=== PATIENT | female | born 1990 | race Caucasian/White ===

== ENCOUNTER → 2018-06-11 14:39 | Outpatient (CLI) | payer OTHER | END | disposition home or self-care (01) | LOC: D.MRI 14:39 | PROVIDERS: ATTEND Orthopaedic Surgery | DX: M25.561 Pain in right knee (principal) ==

== ENCOUNTER → 2018-07-19 10:56 | Outpatient (CLI) | payer OTHER ==
[~2018-07-19 10:56] MED LIST: ADIPEX-P37.5 MG PO; BENADRYL50 MG PO; CLARITIN 10 MG10 MG PO; ETHINYL ESTRADIOL; ETONOGESTREL; FERROUS SULFAT325 MG PO; KEFLEX500 MG PO; MULTI-DAY VITAM1 TAB PO; SINGULAIR10 MG PO; ULTRAM50 MG PO; ZANTAC300 MG PO
== END | disposition home or self-care (01) ==
LOC: D.US 10:56
DX: I83.819 Varicose veins of unspecified lower extremity with pain (principal)

== ENCOUNTER 2018-09-06 05:34 | Day surgery (SDC) | payer OTHER ==
[~2018-09-06] VITALS: Ht 162.6 cm; Wt 109.3 kg
[~2018-09-06 05:34] MED LIST changes: -ADIPEX-P37.5 MG PO; -CLARITIN 10 MG10 MG PO; -KEFLEX500 MG PO
[2018-09-06 05:55] LABS: BASOPHILS 0.3 % (0-2); HEMATOCRIT 37.1 % (36.0-48.0); HEMOGLOBIN 12.4 g/dL (12-16); IMMATURE GRANULOCYTES 0.3 % (0-5); LYMPHOCYTES 33.3 % (15-50); MCH 30.5 pg (26.0-34.0); MCHC 33.4 g/dL (31.0-37.0); MCV 91.2 fL (80.0-100.0); MEAN PLATELET VOLUME 8.6 fL (7.4-10.4); MONOCYTES 5.6 % (2-11); NEUTROPHILS 59.5 % (40-80); PLATELET COUNT 320 10x3/uL (130-400); RBC 4.07 10x6/uL (4.00-5.40); RDW 13.3 % (11.5-14.5); WBC 6.9 10x3/uL (4.8-10.8)
[2018-09-06] MEDS ORDERED: CLARITIN 10 MG10 MG PO (06:23)
[2018-09-06 06:26] VITALS: BP 137/99; Ht 162.6 cm; Wt 109.3 kg
[2018-09-06 06:35] LABS: HCG URINE NEGATIVE (NEGATIVE)
--- NOTE | 2018-09-06 16:59 | NUR ---
[address] BRYAN VIA PHONE. WILL RE-INFORCE DRESSING AND HAVE PT ELEVATE LEGS FOR RIDE HOME. SPOKE WITH PT AND HER MOTHER WHO IN A RETIRED RN WITH INSTRUCTIONS. BOTH VERBALIZED AN UNDERSTANDING
--- NOTE | 2018-09-09 12:59 | OP ---
PATIENT NAME: ALEXANDRE SOUZA MEDICAL RECORD: [id number] :90 LOCATION:[facility] ADMISSION DATE: SURGEON: SHANTA BRYAN MD DATE OF OPERATION: 09/06/2018 PREOPERATIVE DIAGNOSES: 1. Pathologic venous reflux in the bilateral greater saphenous and lesser saphenous veins. 2. Multiple symptomatic lower extremity varicosities, bilateral. POSTOPERATIVE DIAGNOSES: 1. Pathologic venous reflux in the bilateral greater saphenous and lesser saphenous veins. 2. Multiple symptomatic lower extremity varicosities, bilateral. PROCEDURES: 1. VNUS radiofrequency ablation of the right greater saphenous vein. The length treated was 62 cm. 1. VNUS radiofrequency ablation of the left greater saphenous vein. The length treated was 58.5 cm. 1. VNUS radiofrequency ablation of the left lesser saphenous vein. The length treated was 17 cm. 2. VNUS radiofrequency ablation of the right lesser saphenous vein. The length treated was 16.0 cm 3. Bilateral lower extremity avulsion phlebectomies times 72. SURGEON: Shanta Bryan MD CHIEF COMMUNICATIONS OFFICER: Romulo Angel, Keeper Head. BLOOD LOSS: 400 cc. ANESTHESIA: General. COMPLICATIONS: None. The risks, possible complications and alternatives to the procedure were explained to the patient. She elects to proceed. Discussion specifically included, but was not limited to, bleeding requiring emergency reoperation, infection, possibility that all the varicosities would not be removed, possibility of nerve injury or paresthesias. OPERATIVE COURSE: The patient was conveyed the operating room electively on 09/06/2018. I saw the patient in the holding area and with her standing in the presence of a female nurse, I marked all the varicosities. The patient confirmed that all the varicosities were marked. There was one varicosity that was on the patient's right groin as well as the left lower quadrant of the abdomen. After being conveyed to the operating room, general anesthesia was induced by anesthesia staff. The patient was initially positioned supine. She was then positioned in the reverse Trendelenburg position. Under ultrasonographic guidance, I percutaneously accessed the right greater saphenous vein just above the ankle. A guidewire passed easily. A dilator sheath was advanced. The dilator and wire were removed. Through the sheath, the radiofrequency catheter OPERATIVE REPORT [id number] ALEXANDRE SOUZA was advanced. It was advanced to the saphenofemoral junction. I then withdrew it about 2 cm out of the saphenofemoral junction, so that its tip was within the greater saphenous vein. Under ultrasonographic guidance, I then injected a crystalloid solution around the vein to act as a heat sink in order to prevent thermal damage to surrounding structures. I activated the radiofrequency catheter. It was activated twice initially. With each 7 cm pullback, it was activated again. The entire length treated is listed above. I then injected a dilute foamed sclerosant up through the sheath. The sheath was then removed. The sheath entry site was closed with a single horizontal mattress 4-0 Vicryl Rapide suture. Attention was then turned to the left greater saphenous vein under ultrasonographic guidance, I percutaneously accessed the vein in an antegrade fashion. A guidewire passed easily. A dilator sheath was advanced. The dilator and wire were removed. Through the sheath, I advanced the radiofrequency catheter to the saphenofemoral junction. I then withdrew the tip of the catheter, so that it was about 2 cm within the greater saphenous vein. I then under ultrasonographic guidance, I injected a crystalloid solution into the perivenular tissues to act as a heat sink. I then activated the radiofrequency catheter. It was activated twice initially. With each 7 cm pullback, it was activated again. The entire length treated is listed above. I then injected a dilute foamed sclerosant up through the sheath. The sheath was then removed. The sheath puncture site was closed with a horizontal mattress 4-0 Vicryl Rapide suture. Through small skin nicks, avulsion phlebectomies were performed. At no time was there any apparent nerve injury during this procedure. The patient was then positioned prone. Under ultrasonographic guidance, I percutaneously accessed the left lesser saphenous vein in an antegrade fashion. Guidewire was passed easily. A small skin maicol was accomplished. The dilator sheath was advanced over the wire. The dilator and wire were removed. The radiofrequency catheter was then advanced. It was advanced to the saphenopopliteal junction. I then withdrew the catheter several centimeters into the lesser saphenous vein. Under ultrasonographic guidance, I injected a crystalloid solution into the perivenular tissues to act as a heat sink to prevent injury to surrounding structures. I activated the radiofrequency catheter. With each 7 cm pullback, the catheter was activated again. The catheter was then removed. The entire length treated is listed above. Through the sheath, I injected a dilute foamed sclerosant. The sheath was then removed. The sheath puncture site was closed with a horizontal mattress 4-0 Vicryl Rapide suture. Attention was then turned to the right lesser saphenous vein. Under ultrasonographic guidance, I percutaneously accessed the right lesser saphenous vein. A guidewire passed easily. A small skin maicol was accomplished. A dilator sheath was advanced over the wire. The dilator and wire were removed. Through the sheath, I advanced the radiofrequency catheter. Under ultrasonographic guidance, I pulled the radiofrequency catheter back so that it was 2 cm within the lesser saphenous vein, away from the saphenopopliteal OPERATIVE REPORT [id number] ALEXANDRE SOUZA [place]. I then injected a crystalloid into the perivenular tissues. I activated the radiofrequency catheter. With each activation, I pulled back 7 cm. The entire length treated is listed above. I radiofrequency catheter was then removed. I injected a dilute foamed sclerosant through the sheath. The sheath was then removed. The puncture site was closed with a horizontal mattress 4-0 Vicryl Rapide suture. Through the small skin nicks, avulsion phlebectomies were performed with the phlebectomy hook. At no time was there any apparent nerve injury during the procedure. The patient was then positioned supine. Both lower extremities were wrapped in Coban wraps. I will see the patient in my office on Sunday for removal of the dressings. TRANSINT:[id number] Voice Confirmation ID: [id number] DOCUMENT ID: [id number] SHANTA BRYAN MD at 1259 CC: SOUMYA SCHMIDT DO and LACY, BRITTANY [id number] DICTATION DATE: 09/06/18 1321 COMBUSTION ANALYST: 09/06/18 1616 [facility] 09/06/18 [id number] [place] [address]
== END 2018-09-06 16:50 | disposition home or self-care (01) ==
LOC: D.OPS 05:34 → D.PAN 08:00 → D.OPS 08:00
PROVIDERS: Anesthesiology; ATTEND Surgery
DX: I83.93 Asymptomatic varicose veins of bilateral lower extremities (principal)

== ENCOUNTER 2018-10-15 00:54 | Emergency (ER) | payer OTHER ==
[~2018-10-15] VITALS: Ht 162.6 cm; Wt 115.9 kg
[~2018-10-15 00:54] MED LIST changes: +CLARITIN 10 MG10 MG PO
[2018-10-15 00:59] VITALS: Ht 162.6 cm; Wt 115.9 kg
[2018-10-15] MEDS ORDERED: ADIPEX-P37.5 MG PO (01:03)
[2018-10-15] MEDS ORDERED: KEFLEX500 MG PO (01:03)
[2018-10-15] MEDS ORDERED: ULTRAM50 MG PO (01:40)
[2018-10-15 02:00] VITALS: BP 138/80
== END 2018-10-15 02:00 | disposition home or self-care (01) ==
LOC: D.ER 00:54
DX: R60.0 Localized edema (principal)

== ENCOUNTER → 2018-10-15 13:50 | Outpatient (CLI) | payer OTHER ==
[2018-10-15 00:59] VITALS: BMI 43.8
[~2018-10-15 13:50] MED LIST changes: +ADIPEX-P37.5 MG PO; +KEFLEX500 MG PO
== END | disposition home or self-care (01) ==
LOC: D.US 13:50
PROVIDERS: ATTEND Surgery
DX: R22.43 Localized swelling, mass and lump, lower limb, bilateral (principal)

== ENCOUNTER 2018-12-18 05:00 | Day surgery (SDC) | payer OTHER ==
[2018-12-17 09:56] LABS: HEMATOCRIT 38.4 % (36.0-48.0); HEMOGLOBIN 12.5 g/dL (12-16); MCH 29.1 pg (26.0-34.0); MCHC 32.6 g/dL (31.0-37.0); MCV 89.3 fL (80.0-100.0); MEAN PLATELET VOLUME 8.6 fL (7.4-10.4); RBC 4.3 10x6/uL (4.00-5.40); RDW 13.6 % (11.5-14.5); WBC 6.3 10x3/uL (4.8-10.8)
[~2018-12-18] VITALS: Ht 162.6 cm; Wt 117.9 kg
--- NOTE | ~2018-12-18 | OP ---
PATIENT NAME: ALEXANDRE SOUZA MEDICAL RECORD: [id number] :90 LOCATION:[facility] ADMISSION DATE: SURGEON: GRETCHEN MERAZ DPM DATE OF OPERATION: 12/18/2018 PREOPERATIVE DIAGNOSIS: Tailor's bunion deformity of bilateral fifth metatarsal. POSTOPERATIVE DIAGNOSIS: Tailor's bunion deformity of bilateral fifth metatarsal. PROCEDURE: Bilateral fifth metatarsal head partial resection. ANESTHESIA: General with local infiltrate utilizing lidocaine and Marcaine plain 10 cc around the fifth ray of the bilateral feet. HEMOSTASIS: Esmarch were used to bilateral ankles. PREOPERATIVE DETAILS: The patient was taken to the OR and placed on the operating table in a supine position. This was followed by induction of general anesthesia and infiltration of local anesthetic. It was at this time that Dr. Sarah performed his consented procedure on the right knee. Following that, the bilateral lower extremities were prepped and draped in the usual aseptic technique followed by exsanguination utilizing an Esmarch. PROCEDURE NUMBER 1: Partial metatarsal head resection, head of the fifth metatarsal. Following application of the Esmarch, a 15-blade was used to create a 3 cm linear incision over the lateral aspect of the head of the fifth metatarsal. The incision was deepened down through subcutaneous tissue being sure to avoid all vital structures. A capsulotomy was performed and the head of fifth metatarsal was delivered. The plantar aspect was visualized and resected with a sagittal saw. The lateral eminence was also resected with a sagittal saw. The rough areas were smoothed with a bone rasp. The wound was flushed. The capsule was repaired with 2-0 Vicryl, the subcutaneous tissue with 4-0 Rapide and the skin was closed with 4-0 Rapide in a subcuticular technique followed by Dermabond. Adaptic, 4 x 4 and Conform were applied to the wound followed by a Coban. The Esmarch was removed. PROCEDURE NUMBER 2: Partial metatarsal head resection of the right fifth metatarsal. The procedure as described in number 1 was performed without variation and no complication. POSTOPERATIVE DETAILS: The patient tolerated the procedure well and left the OR with vital signs stable and vascular status at preoperative levels. The patient was transported to recovery per anesthesia in stable condition. TRANSINT:[id number] Voice Confirmation ID: [id number] DOCUMENT ID: [id number] OPERATIVE REPORT [id number] ALEXANDRE SOUZA MCKAY DPM CC: [id number] DICTATION DATE: 12/18/18905 SHORT ORDER COOK: 12/18/18 1516 [facility] 12/18/18 [id number] [place] [address] [id number]
[2018-12-18 06:16] VITALS: BP 113/75; Ht 162.6 cm; Wt 117.9 kg
[2018-12-18 06:26] LABS: HCG URINE NEGATIVE (NEGATIVE)
[2018-12-18] MEDS ORDERED: PERCOCET 7.5/321 TAB PO (07:33)
--- NOTE | 2018-12-18 10:19 | NUR ---
0957-REC'D FROM . AWAKE AND ALERT WITHOUT COMPLAINTS OF PAIN. DRESSINGS TO RIGHT KNEE AND BILATERAL FEET CDI. CAP REFILL WNL. SKIN PINK,WARM AND DRY. FAMILY AT BEDSIDE. CL IN EASY REACH.
--- NOTE | 2018-12-18 10:20 | NUR ---
1015-FULL LIQUID TRAY TO ROOM. VSS. DENIES COMPLAINTS. BLE ELEVATED ON PILLOW
--- NOTE | 2018-12-18 12:09 | NUR ---
1100-DISCHARGE CRITERIA MET. REMOVED IV FROM [facility] WITH CATH INTACT, DISPOSED INTO [facility]ARPS.COVERED SITE WITH BANDAID. VSS.DRESSINGS CDI. STABLE CONDITION. REVIEWED DISCHARGE INSTRUCTIONS WITH PT AND FAMILY MEMBERS AT BEDSIDE. VERBALIZED UNDERSTANDING WITHOUT QUESTIONS OR CONCERNS. ESCORTED OUT VIA W/C WITH MOTHER AWAITING TO DRIVE HOME
--- NOTE | 2018-12-18 14:45 | OP ---
PATIENT NAME: ALEXANDRE SOUZA MEDICAL RECORD: [id number] :90 LOCATION:[facility] ADMISSION DATE: SURGEON: WARNER SCHMIDT DO DATE OF OPERATION: 12/18/2018 PROCEDURE PERFORMED: Right knee arthroscopy with lateral release and patellar abrasion chondroplasty. 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 INDICATIONS: Ms. Souza is a 28-year-old female who has had right knee pain for quite some time. She had an MRI, which demonstrated a lateral tilt in patella and lateral riding patella. The TT-TG was 12 mm. It was not an indication for TTO. She tried several rounds of therapy with no avail. She wants something done to fix it. I informed her of the risks including bleeding, infection, damage to nerves and vessels, need for further surgery, dislocation of patella and continued knee pain, blood clots and even . She is okay with that and signed the consent. SURGEON: Warner Schmidt DO DESCRIPTION OF PROCEDURE: The patient was taken to the operative suite, laid in supine position, given general anesthetic, 3 grams Ancef. The right lower extremity was prepped and draped in sterile fashion. Timeout was performed, everyone was in agreement of the correct side, site, patient, and procedure. She was sedated and LMA was placed prior to this. The portal sites, anterior, medial, and lateral were then injected with 4 mL of 0.5% Marcaine with epinephrine. Then, the lateral portal was established with an 11-blade scalpel. Trocar was entered into the knee. The medial portal was then established with an 18-gauge spinal needle and 11-blade scalpel. The suprapatellar pouch was inspected as well as the medial gutter, no loose body was seen in it. The probe was then brought into the medial portal and the menisci on the medial side did not have any tears and the cartilage looked good on the medial compartment. The ACL also looked good and the knee was in [id number]. Lateral compartment was entered. No tears in the lateral meniscus or on the cartilage. The patella seemed to be very far lateral tracking. The scope was then switched to the medial portal and a hook burner was brought into the lateral portal and a lateral release was done. There was some bleeding. The tourniquet was then inflated and the bleeders were coagulated at that time. Lateral release was then completed and then the portals were switched again to the viewing portal to the lateral portal and a shaver was brought in to the chondroplasty which she was seen to have a grade III chondromalacia on the medial patellar facet. Once that was completed, the knee was flexed down and the patella seemed to track very well on the trochlea. There was no lateral tilt seen of the patella. The tourniquet was then let down. Suction was turned on and water was turned off and the portal sites were closed with 4-0 Monocryl in an inverted interrupted fashion. Steri-Strips, Adaptic, 4 x 4's, ABD, and Webril and then a 6-inch Trino was then placed on the knee. The patient was then handed over to Dr. Felipe, who was doing bilateral foot procedures on her. Blood loss for my part was minimal. OPERATIVE REPORT [id number] ALEXANDRE SOUZA COMPLICATIONS: None. TRANSINT:[id number] Voice Confirmation ID: [id number] DOCUMENT ID: [id number] WARNER SCHMIDT DO at 1445 CC: [id number] DICTATION DATE: 12/18/18817 [employer] ARCHITECT: 12/18/18 1408 [facility] 12/18/18 [id number] [place] [address]
== END 2018-12-18 11:00 | disposition home or self-care (01) ==
LOC: D.OPS 05:00 → D.PAN 07:00 → D.OPS 07:00
PROVIDERS: Anesthesiology; ATTEND Podiatrist
DX: M21.622 Bunionette of left foot (principal); M21.621 Bunionette of right foot; M22.2X1 Patellofemoral disorders, right knee; M22.41 Chondromalacia patellae, right knee